=== PATIENT | female | born 1950 | race Caucasian/White ===

== ENCOUNTER 2018-12-05 14:32 | Inpatient (IN) | payer MEDICARE, BC ==
[~2018-12-05] VITALS: Ht 152.4 cm; Wt 88.3 kg
[2018-12-05 15:20] VITALS: BP 132/72
--- NOTE | 2018-12-05 15:20 | NUR ---
Patient arrived. A&O x 4, very pleasant. Put on 2 Li NC, O2 sat at 86 on RA. Asked the 3 gentleman with her to step out while we were going to ehlp her change into a gown and do an assessment. The one that appears to be her son, became very upset, and kept interrupting and asked us to not ever ask him again to step out, because he would not do it. I asked the patient if she was ok with him staying in the room, and she says she is at this time. Patient on telemetry, shows ST at 100-110 at this time. Coccyx not assessed yet, but there appears to be no other skin issues at this time.
[2018-12-05] MEDS ORDERED: SERT100T PO (17:57)
[2018-12-05] MEDS ORDERED: SIMV20TA3 PO (17:57)
[2018-12-05] MEDS ORDERED: METF500T16 PO (18:00)
[2018-12-05] MEDS ORDERED: POTA10TA6 PO (18:00)
[2018-12-05] MEDS ORDERED: ZOLP10TA PO (18:00)
[2018-12-05] MEDS ORDERED: PIOG30TA41 PO (18:00)
[2018-12-05] MEDS ORDERED: LORA-434 PO (18:13)
[2018-12-05] MEDS: IPRATRPIUM/ALBUTEROL 0.5/2.5MG 3 ML NEBU. NEB SCH (18:14)
[2018-12-05 18:23] LABS: BASO % 0 % (0-3); EOS # 0.1 x10^3/uL (0.0-0.7); EOS % 1 % (0-3); HEMOGLOBIN 13.5 g/dL (12.0-15.5); LYMPH # 2.4 x10^3/uL (1.0-4.8); LYMPH % 31 % (24-48); MEAN CORPUSCULAR HEMOGLOBIN 33 pg (25-35); MEAN CORPUSCULAR HGB CONC 35 g/dL (31-37); MEAN CORPUSCULAR VOLUME 96 fL (79-100); MONO # 0.9 x10^3/uL (0.0-1.1); MONO % 12 % (0-9); NEUT # 4.5 x10^3uL (1.8-7.7); NEUT % 57 % (31-73); PLATELET COUNT 139 x10^3/uL (140-400); RED BLOOD COUNT 4.07 x10^6/uL (3.50-5.40); RED CELL DISTRIBUTION WIDTH 13.3 % (11.5-14.5); WHITE BLOOD COUNT 7.9 x10^3/uL (4.0-11.0)
[2018-12-05] MEDS ORDERED: ZOLPIDEM 5 MG TABLET. PO PRN (18:30)
--- NOTE | 2018-12-05 18:32 | HP ---
ADMIT DATE: 12/05/2018 CHIEF COMPLAINT AND HISTORY OF PRESENT ILLNESS: This 68-year-old white female is well known to me from followup in the office. The patient was seen on the day of the patient brought to the office by her brother. The patient had coughing and increasing shortness of breath over the week or 10 days prior to admission. It got to the point where she was unable to walk around the house, to do activities of daily living. She was seen in the office with markedly decreased air movement, bilateral wheezes, hypoxia with O2 sat of 84%, a resting pulse of 118 and was admitted for an exacerbation of COPD with possible pneumonia. PAST MEDICAL HISTORY: Remarkable for COPD, diabetes. She is status post carcinoma of the colon. She has a history of hyperlipidemia, atherosclerotic heart disease with prior OK and stenting. MEDICATIONS: Brought with the patient listed on the computer and have been addressed. ALLERGIES: She has no known drug allergies. SOCIAL HISTORY: She continues to be a smoker, is a nondrinker, does not use drugs, recently , lives at home alone. FAMILY HISTORY: Noncontributory. REVIEW OF SYSTEMS: As mentioned above. PHYSICAL EXAMINATION: GENERAL: She is a well-developed, well-nourished white female who appears ill. VITAL SIGNS: Remarkable for that as mentioned above. She is afebrile in the office. HEAD, EYES, EARS, NOSE, AND THROAT: Unremarkable. NECK: Supple without bruit or thyromegaly. CHEST: Reveals markedly decreased breath sounds bilaterally with some soft wheezing. HEART: Tachycardic, regular without S3, S4, or murmur. ABDOMEN: Soft, nontender, without hepatosplenomegaly or mass. EXTREMITIES: Without cyanosis, clubbing, edema. NEUROLOGIC: She is intact. IMPRESSION: 1. Exacerbation of chronic obstructive pulmonary disease with hypoxia, tachycardia, shortness of breath. 2. Multiple other problems listed above. PLAN: The patient has been admitted. Chest x-ray, Labs will be obtained. She will be started on IV antibiotics, steroids, pulmonary toilet. Pulmonary consultation will be obtained. The patient will be monitored, managed and treated appropriately. MACIEJ SALAZAR MD DR: HUMAIRA/alonzo JOB#: [id number] / [id number]
[2018-12-05 18:39] LABS: ALBUMIN/GLOBULIN RATIO 0.6 (1.0-1.7); CALCIUM 8.9 mg/dL (8.5-10.1); CREATININE 1.1 mg/dL (0.6-1.0); GFR 49.2; POTASSIUM 3.9 mmol/L (3.5-5.1); TOTAL BILIRUBIN 0.5 mg/dL (0.2-1.0); TOTAL PROTEIN 7.9 g/dL (6.4-8.2)
[2018-12-05] MEDS ORDERED: metFORMIN 500 MG TABLET PO ONE (18:45)
[2018-12-05] MEDS: LORazepam 1 MG TABLET PO PRN (18:50)
[2018-12-05] MEDS: IV 1/2 NORMAL SALINE 1,000 ML IV SCH (18:51)
[2018-12-05 19:00] VITALS: BP 144/64
[2018-12-05] MEDS ORDERED: methylPREDNISolone SOD SUCC PF 125 MG/2 ML VIAL. IV ONE (20:00)
[2018-12-05] MEDS: ZOLPIDEM 5 MG TABLET. PO SCH (21:00)
[2018-12-05] MEDS: SIMVASTATIN 20 MG TABLET PO SCH (21:29)
[2018-12-05] MEDS: cefTRIAXone IV Push 1 GM VIAL. IVP SCH (21:29)
[2018-12-05] MEDS ORDERED: INSULIN LISPRO 300 UNITS/3 ML INSULN.PEN. SQ ONE (22:00)
--- NOTE | 2018-12-05 22:28 | RAD ---
Examination: CHEST AP ONLY History: Weak fatigue and short of breath Comparison/Correlation: None Findings: Portable upright frontal view of the chest was obtained. Heart size and pulmonary vasculature are normal. No infiltrate or effusion. No pneumothorax. Bony structures are unremarkable. Impression: No active disease. Electronically signed by: Sal Mejía MD (12/05/2018 10:24 PM) [facility]
[2018-12-05 23:00] VITALS: BP 145/64
[2018-12-05] MEDS: AZITHROMYCIN 500 MG in IV NORMAL SALINE 250ML 250 ML IV SCH (23:01)
[2018-12-06] MEDS ORDERED: LORazepam 1 MG TABLET PO SCH
[2018-12-06 01:04] LABS: BILIRUBIN,URINE NEGATIVE (NEG); CLARITY,URINE CLEAR; COLOR,URINE YELLOW; NITRITE,URINE NEGATIVE (NEG); PROTEIN,URINE NEGATIVE (NEG-TRACE); UROBILINOGEN,URINE 0.2 mg/dL (0.2 mg/dL)
[2018-12-06 01:30] LABS: BACTERIA,URINE FEW /HPF (0-FEW); RBC,URINE 0 /HPF (0-2); SQUAMOUS EPITHELIAL CELL,UR FEW /LPF; WBC,URINE OCC /HPF (0-4)
[2018-12-06 03:00] VITALS: BP 130/54
[2018-12-06] MEDS ORDERED: methylPREDNISolone SOD SUCC PF 40 MG/ML VIAL. IV SCH (06:00)
[2018-12-06] MEDS: IV 1/2 NORMAL SALINE 1,000 ML IV SCH ×2 (06:33→21:20)
[2018-12-06 06:55] VITALS: BP 119/48
[2018-12-06] MEDS: IPRATRPIUM/ALBUTEROL 0.5/2.5MG 3 ML NEBU. NEB SCH ×5 (07:56→23:22)
[2018-12-06] MEDS: POTASSIUM CHLORIDE 10 MEQ TABLET.ER. PO SCH (08:25)
[2018-12-06] MEDS: PIOGLITAZONE 15 MG TABLET. PO SCH (08:25)
[2018-12-06] MEDS: metFORMIN 500 MG TABLET PO SCH ×2 (08:25→17:43)
[2018-12-06] MEDS: SERTRALINE 50 MG TABLET. PO SCH (08:26)
[2018-12-06] MEDS ORDERED: DEXTROSE 50% 25 GM / 50ML DISP.SYRIN. IV PRN (08:30)
[2018-12-06] MEDS: INSULIN LISPRO 300 UNITS/3 ML INSULN.PEN. SQ SCH ×3 (08:38→17:47)
--- NOTE | 2018-12-06 10:07 | PN ---
DATE: 12/06/2018 LOCATION: She is in room 652. SUBJECTIVE: The patient is awake and alert, was able to sleep a little bit better last night and definitely is a little bit less short of breath. OBJECTIVE: VITAL SIGNS: Stable. She is afebrile. GENERAL: She is awake and alert. White count was normal at 7900 on admission and creatinine was 1.1. Sugars have been elevated since admission due to steroid use and sliding scale insulin was ordered this morning. Chest x-ray showed no acute disease. CHEST: Today reveals more wheezing, but it is because she is moving more air than she was in the office. HEART: Tachycardia is better with her heart rate down around 100 at this point, but regular. ABDOMEN: Benign. EXTREMITIES: Without cyanosis, clubbing or edema. IMPRESSION: 1. Exacerbation of chronic obstructive pulmonary disease with hypoxia, tachycardia and acute respiratory failure. 2. Diabetes with elevated sugars due to steroids. PLAN: We will continue present care. Awaiting pulmonary thoughts on consultation. We will cover elevated sugars with sliding scale insulin. MACIEJ SALAZAR MD DR: HUMAIRA/alonzo JOB#: [id number] / [id number]
[2018-12-06 10:31] VITALS: BP 145/70
[2018-12-06] MEDS: LORazepam 1 MG TABLET PO PRN ×2 (12:47→19:35)
--- NOTE | 2018-12-06 14:11 | CONS ---
DATE OF CONSULTATION: ATTENDING PHYSICIAN: Dr. Arizmendi. REASON FOR CONSULTATION: Dyspnea, hypoxia. HISTORY OF PRESENT ILLNESS: The patient is a 68-year-old who has been a smoker for 45 years and still smokes cigarettes. She was brought into the hospital after she has been increasingly short of breath. The patient states that she has been coughing for last 4-5 days and is productive of brown sputum. She has been wheezing as well. She was noted to have a saturation of 84% in the office with Dr. Arizmendi and resting tachycardia. As a result, she was hospitalized. She denies any headaches. No blurring of vision. No nausea, vomiting, no diarrhea, no dysuria, no focal weakness. No skin rash. I have reviewed the patient's chest x-ray, and it does not show any acute infiltrates. PAST MEDICAL HISTORY: Significant for COPD with ongoing tobaccoism, unknown FEV1, history of hyperlipidemia, atherosclerotic heart disease with prior CT and stenting. MEDICATIONS: All reviewed as listed in the MRAD.. PAST SURGICAL HISTORY: No recent surgeries. ALLERGIES: None. SOCIAL HISTORY: Continues to smoke, has been drinking for last 40 years. She is , lives at home alone. FAMILY HISTORY: Noncontributory to lungs. REVIEW OF SYSTEMS: Twelve-point system obtained. Pertinent positives discussed in my history of present illness, otherwise noncontributory. All systems that were negative were reviewed as well. OBJECTIVE: VITAL SIGNS: Stable. Pulse ox 93% on 3 liters. NECK: Supple. LUNGS: With bilateral expiratory wheezes and some rhonchi. CARDIOVASCULAR: Regular rate and rhythm. ABDOMEN: Soft, obese. EXTREMITIES: With no pitting edema. LABORATORY DATA: Reviewed. White cell count 7.9, hemoglobin 13.5, platelets are 139. BUN and creatinine 15 and 1.1. IMPRESSION: 1. Dyspnea with acute hypoxic respiratory failure secondary to acute exacerbation of chronic obstructive pulmonary disease and acute bronchitis. 2. Cough with brown sputum production related to acute bronchitis. She has been expectorating brown sputum, but at times has difficulty in getting phlegm out. She may benefit from Mucinex as well. 3. Underlying chronic obstructive pulmonary disease, unknown FEV1. The patient has been smoking for 45 years. 4. No definite pneumonia seen on the chest x-ray. RECOMMENDATIONS: 1. I had an extensive discussion with the patient regarding tobacco use. She would consider cold turkey. 2. In the meantime, I would increase nebulizer treatments to every 4 hours till wheezing is resolved. She will need home nebulizer at discharge. 3. Add Pulmicort. 4. Increase Solu-Medrol. 5. Continue empiric antibiotics. 6. PFTs as an outpatient. 7. We will follow along with you. TONE PHIPPS MD DR: NITZA/alonzo JOB#: [id number] / [id number]
[2018-12-06] MEDS: methylPREDNISolone SOD SUCC PF 125 MG/2 ML VIAL. IV SCH ×2 (14:53→21:18)
[2018-12-06 15:02] VITALS: BP 138/68
[2018-12-06] MEDS ORDERED: INSULIN LISPRO 300 UNITS/3 ML INSULN.PEN. SQ ONE ×2 (17:45→23:30)
[2018-12-06] MEDS: cefTRIAXone IV Push 1 GM VIAL. IVP SCH (19:35)
[2018-12-06 19:40] VITALS: BP 136/54
[2018-12-06] MEDS: BUDESONIDE 0.5 MG/2 ML NEBU. NEB SCH (20:23)
[2018-12-06] MEDS: SIMVASTATIN 20 MG TABLET PO SCH (21:17)
[2018-12-06] MEDS: LACTOBACILLUS RHAMNOSUS GG 1 CAPSULE. PO SCH (21:17)
[2018-12-06] MEDS: ZOLPIDEM 5 MG TABLET. PO SCH (21:17)
[2018-12-06] MEDS: AZITHROMYCIN 500 MG in IV NORMAL SALINE 250ML 250 ML IV SCH (21:19)
[2018-12-06 23:10] VITALS: BP 153/64
--- NOTE | 2018-12-06 23:16 | NUR ---
HS glucose at 398, MD notified, gave an order for to give 4units of Insulin
[2018-12-07 03:32] VITALS: BP 136/60
[2018-12-07] MEDS: IPRATRPIUM/ALBUTEROL 0.5/2.5MG 3 ML NEBU. NEB SCH ×6 (04:03→23:36)
[2018-12-07] MEDS: methylPREDNISolone SOD SUCC PF 125 MG/2 ML VIAL. IV SCH ×3 (05:56→20:55)
[2018-12-07 07:00] VITALS: BP 115/57
--- NOTE | 2018-12-07 07:48 | PN ---
DATE: 12/07/2018 LOCATION: She is in room 652. SUBJECTIVE: The patient is easily awakened, feels like she got stretches of 2-3 hours of sleeping without shortness of breath last night and is very happy about that. Still has marked shortness of breath with any exertion within the room. OBJECTIVE: VITAL SIGNS: Stable. She remains somewhat tachycardic in the 110 range. She is afebrile. O2 is present at 3 liters per nasal cannula. LUNGS: Reveals louder wheezing this morning consistent with better air movement as she is beginning to open up. HEART: Tachycardic, regular. ABDOMEN: Benign. EXTREMITIES: Without cyanosis, clubbing or edema. LABORATORY DATA: Sugars have been in the 300s with steroids. I have asked nursing to increase her sliding scale by 5 units per range here today, but know that once the steroids are able to be weaned, her sugars are normally very good. Pulmonary help is appreciated. IMPRESSION: 1. Exacerbation of chronic obstructive pulmonary disease with hypoxia, tachycardia, acute respiratory failure with slow improvement. 2. Diabetes with elevated sugars due to steroids. 3. Coronary artery disease. PLAN: Continue present care. Trace the sugars around the sliding scale insulin, otherwise, same and allow the patient's treatment hopefully to open her up to where we can consider discharge. MACIEJ SALAZAR MD DR: HUMAIRA/alonzo JOB#: [id number] / [id number]
[2018-12-07] MEDS: BUDESONIDE 0.5 MG/2 ML NEBU. NEB SCH ×2 (07:56→20:10)
--- NOTE | 2018-12-07 08:30 | NUR ---
SW following pt for anticipated dc needs. Chart reviewed and DW RN. Pt lives at home alone and is currently 3L 02. SW requested RN to order PT/OT evaluation to assesses skilled needs. SW will also continue to evaluate home 02 needs.
[2018-12-07] MEDS: LACTOBACILLUS RHAMNOSUS GG 1 CAPSULE. PO SCH ×2 (09:25→20:55)
[2018-12-07] MEDS: metFORMIN 500 MG TABLET PO SCH ×2 (09:26→18:15)
[2018-12-07] MEDS: POTASSIUM CHLORIDE 10 MEQ TABLET.ER. PO SCH (09:26)
[2018-12-07] MEDS: PIOGLITAZONE 15 MG TABLET. PO SCH (09:27)
[2018-12-07] MEDS: SERTRALINE 50 MG TABLET. PO SCH (09:27)
[2018-12-07] MEDS: INSULIN LISPRO 300 UNITS/3 ML INSULN.PEN. SQ SCH ×6 (09:32→18:19)
[2018-12-07 11:00] VITALS: BP 121/53
[2018-12-07] MEDS: IV 1/2 NORMAL SALINE 1,000 ML IV SCH ×2 (11:04→22:50)
--- NOTE | 2018-12-07 12:04 | PDOC ---
PULMONARY PROGRESS NOTES Subjective did not sleep well last night still wheezing Vitals Vital Signs Date Time Temp Pulse Resp B/P (MAP) Pulse Ox O2 Delivery O2 Flow Rate FiO2 12/07/18 11:00 98.3 110 18 121/53 (75) 92 Nasal Cannula 3.0 98.3 General: Alert, No acute distress Lungs: Wheezing (bilateral) Cardiovascular: S1 Abdomen: Soft Neuro Exam: Alert Extremities: No Edema Skin: Warm Labs Laboratory Tests Test 12/05/18 17:16 12/05/18 18:10 12/05/18 21:11 12/06/18 00:56 Glucose (Fingerstick) 272 mg/dL (70-99) 349 mg/dL (70-99) White Blood Count 7.9 x10^3/uL (4.0-11.0) Red Blood Count 4.07 x10^6/uL (3.50-5.40) Hemoglobin 13.5 g/dL (12.0-15.5) Hematocrit 39.0 % (36.0-47.0) Mean Corpuscular Volume 96 fL (79-100) Mean Corpuscular Hemoglobin 33 pg (25-35) Mean Corpuscular Hemoglobin Concent 35 g/dL (31-37) Red Cell Distribution Width 13.3 % (11.5-14.5) Platelet Count 139 x10^3/uL (140-400) Neutrophils (%) (Auto) 57 % (31-73) Lymphocytes (%) (Auto) 31 % (24-48) Monocytes (%) (Auto) 12 % (0-9) Eosinophils (%) (Auto) 1 % (0-3) Basophils (%) (Auto) 0 % (0-3) Neutrophils # (Auto) 4.5 x10^3uL (1.8-7.7) Lymphocytes # (Auto) 2.4 x10^3/uL (1.0-4.8) Monocytes # (Auto) 0.9 x10^3/uL (0.0-1.1) Eosinophils # (Auto) 0.1 x10^3/uL (0.0-0.7) Basophils # (Auto) 0.0 x10^3/uL (0.0-0.2) Sodium Level 134 mmol/L (136-145) Potassium Level 3.9 mmol/L (3.5-5.1) Chloride Level 97 mmol/L (98-107) Carbon Dioxide Level 29 mmol/L (21-32) Anion Gap 8 (6-14) Blood Urea Nitrogen 15 mg/dL (7-20) Creatinine 1.1 mg/dL (0.6-1.0) Estimated GFR (Cockcroft-Gault) 49.2 BUN/Creatinine Ratio 14 (6-20) Glucose Level 277 mg/dL (70-99) Calcium Level 8.9 mg/dL (8.5-10.1) Total Bilirubin 0.5 mg/dL (0.2-1.0) Aspartate Amino Transf (AST/SGOT) 14 U/L (15-37) Alanine Aminotransferase (ALT/SGPT) 19 U/L (14-59) Alkaline Phosphatase 97 U/L (46-116) Total Protein 7.9 g/dL (6.4-8.2) Albumin 3.0 g/dL (3.4-5.0) Albumin/Globulin Ratio 0.6 (1.0-1.7) Urine Collection Type Unknown Urine Color Yellow Urine Clarity Clear Urine pH 5.0 Urine Specific [place] 1.020 Urine Protein Negative mg/dL (NEG-TRACE) Urine Glucose (UA) >=1000 mg/dL (NEG) Urine Ketones (Stick) Negative mg/dL (NEG) Urine Blood Negative (NEG) Urine Nitrite Negative (NEG) Urine Bilirubin Negative (NEG) Urine Urobilinogen Dipstick 0.2 mg/dL (0.2 mg/dL) Urine Leukocyte Esterase Negative (NEG) Urine RBC 0 /HPF (0-2) Urine WBC Occ /HPF (0-4) Urine Squamous Epithelial Cells Few /LPF Urine Bacteria Few /HPF (0-FEW) Test 12/06/18 06:55 12/06/18 11:46 12/06/18 16:58 12/06/18 20:55 Glucose (Fingerstick) 319 mg/dL (70-99) 344 mg/dL (70-99) 361 mg/dL (70-99) 398 mg/dL (70-99) Test 12/07/18 07:46 Glucose (Fingerstick) 398 mg/dL (70-99) Laboratory Tests Test 12/06/18 16:58 12/06/18 20:55 12/07/18 07:46 Glucose (Fingerstick) 361 mg/dL (70-99) 398 mg/dL (70-99) 398 mg/dL (70-99) Medications Active Scripts Medications Dose Route/Sig Max Daily Dose Days Date Category Ativan (Lorazepam) 1 Mg Tablet 1 Mg PO Q6HRS 12/05/18 Reported Ambien (Zolpidem Tartrate) 10 Mg Tablet 10 Mg PO PRN QHS 12/05/18 Reported Metformin Hcl 500 Mg Tablet 500 Mg PO BIDWMEALS 12/05/18 Reported Klor-Con 10 (Potassium Chloride) 10 Meq Tablet.er 20 Meq PO DAILY08 12/05/18 Reported Actos (Pioglitazone Hcl) 30 Mg Tablet 1 Tab PO DAILY 12/05/18 Reported Simvastatin 20 Mg Tablet 20 Mg PO DAILY 12/05/18 Reported Zoloft (Sertraline Hcl) 100 Mg Tablet 1.5 Tab PO DAILY 12/05/18 Reported Impression . 1. Dyspnea with acute hypoxic respiratory failure secondary to acute exacerbation of chronic obstructive pulmonary disease and acute bronchitis. 2. Cough with brown sputum production related to acute bronchitis. She has been expectorating brown sputum, but at times has difficulty in getting phlegm out. 3. Underlying chronic obstructive pulmonary disease, unknown FEV1. The patient has been smoking for 45 years. 4. No definite pneumonia seen on the chest x-ray. Plan . 1. I had an extensive discussion with the patient regarding tobacco use. She would consider cold turkey. 2. nebulizer treatments every 4 hours till wheezing is resolved. She will need home nebulizer at discharge. 3. Pulmicort. 4. Solu-Medrol. 5. Continue empiric antibiotics. 6. PFTs as an outpatient. 7. May not be ready for home in am TONE PHIPPS MD Dec 07, 2018 12:04
[2018-12-07] MEDS ORDERED: INSULIN LISPRO 300 UNITS/3 ML INSULN.PEN. SQ ONE (14:15)
[2018-12-07 15:00] VITALS: BP 117/54
[2018-12-07 19:00] VITALS: BP 116/45
[2018-12-07] MEDS: SIMVASTATIN 20 MG TABLET PO SCH (20:55)
[2018-12-07] MEDS: cefTRIAXone IV Push 1 GM VIAL. IVP SCH (20:55)
[2018-12-07] MEDS: ZOLPIDEM 5 MG TABLET. PO SCH (20:55)
[2018-12-07] MEDS: AZITHROMYCIN 500 MG in IV NORMAL SALINE 250ML 250 ML IV SCH (20:56)
[2018-12-07] MEDS ORDERED: INSULIN GLARGINE 300 UNITS/3 ML INSULN.PEN. SQ SCH (21:00)
[2018-12-07] MEDS: LORazepam 1 MG TABLET PO PRN (22:43)
[2018-12-07 23:05] VITALS: BP 110/44
--- NOTE | 2018-12-08 01:00 | NUR ---
BELLMAKER noticed a medicine bottle and heard rattling in patients sock when going to bathroom. This RN asked patient about the bottle. She had moved it and placed it inside of her cough drop package. When asked about it, she pulled out an empty of Valium 10mg from her cough drop bag. She said she had cough drops in the pill bottle.
[2018-12-08 03:14] VITALS: BP 135/59
[2018-12-08] MEDS: IPRATRPIUM/ALBUTEROL 0.5/2.5MG 3 ML NEBU. NEB SCH ×6 (04:02→23:43)
[2018-12-08] MEDS: methylPREDNISolone SOD SUCC PF 125 MG/2 ML VIAL. IV SCH ×3 (05:40→21:58)
[2018-12-08 07:15] VITALS: BP 159/60
--- NOTE | 2018-12-08 07:30 | NUR ---
At approximately 0720 patient called on the call light and said she was needing help stating she was on the floor. This RN observed the patient sitting upright on the floor next to her bed. patient did not complain of any pain and vital signs were normal.
[2018-12-08] MEDS: BUDESONIDE 0.5 MG/2 ML NEBU. NEB SCH ×2 (07:37→19:42)
[2018-12-08] MEDS: PIOGLITAZONE 15 MG TABLET. PO SCH (08:33)
[2018-12-08] MEDS: metFORMIN 500 MG TABLET PO SCH ×2 (08:33→17:47)
[2018-12-08] MEDS: LACTOBACILLUS RHAMNOSUS GG 1 CAPSULE. PO SCH ×2 (08:33→21:58)
[2018-12-08] MEDS: SERTRALINE 50 MG TABLET. PO SCH (08:33)
[2018-12-08] MEDS: POTASSIUM CHLORIDE 10 MEQ TABLET.ER. PO SCH (08:34)
[2018-12-08] MEDS: INSULIN LISPRO 300 UNITS/3 ML INSULN.PEN. SQ SCH ×6 (08:42→17:51)
[2018-12-08] MEDS: LORazepam 1 MG TABLET PO PRN (08:47)
--- NOTE | 2018-12-08 09:57 | NUR ---
SW following pt. PT/OT recommends SNU. Spoke with pt at bedside extensively about options and insurance coverage. Pt wants to discuss options with family and needs time to think over it. SW provided pt with a phone number to call once she reaches a decision. SW has discussed pt will need to notify SW with a decision today so SW can start evaluation process. SW will continue to follow.
[2018-12-08 10:57] VITALS: BP 131/56
[2018-12-08] MEDS: NICOTINE 21MG PATCH. TD SCH (11:28)
--- NOTE | 2018-12-08 11:33 | PN ---
DATE: 12/08/2018 LOCATION: She is in room 652. SUBJECTIVE: The patient is awake, alert, feels like she is gradually improving on a breathing basis, still was profoundly weak and feels like she even needs to have help still getting out of the bed, did walk in the [place] with therapy yesterday; however, and felt like she did okay with that with a walker. Therapy's recommendations were that of half-way at the time of discharge. OBJECTIVE: VITAL SIGNS: Stable. She is afebrile. She remains on 3 liters per nasal cannula O2. CHEST: Reveals better air movement daily with still diffuse expiratory wheezes. HEART: Remained slightly tachycardic. ABDOMEN: Benign. EXTREMITIES: Without cyanosis, clubbing, edema. NEUROLOGIC: She is intact. Sugars have remained elevated, although not quite as much this morning as I started her on some long-acting insulin as well, and we will continue this until the steroids are able to be dismissed. IMPRESSION: 1. Exacerbation of chronic obstructive pulmonary disease with slow improvement. 2. Hyperglycemia due to diabetes, on steroids. 3. Coronary artery disease. PLAN: Continue present care. We will increase the dose of sliding scale insulin this evening if steroids were continued. Continue to follow pulmonary's lead and will put in evaluation for half-way. MACIEJ SALAZAR MD DR: HUMAIRA/alonzo JOB#: [id number] / [id number]
--- NOTE | 2018-12-08 12:38 | PDOC ---
PULMONARY PROGRESS NOTES Subjective less wheezing/ no soa Vitals Vital Signs Date Time Temp Pulse Resp B/P (MAP) Pulse Ox O2 Delivery O2 Flow Rate FiO2 12/08/18 12:08 Nasal Cannula 3.0 12/08/18 10:57 98.0 86 20 131/56 (81) 94 98.0 General: Alert, No acute distress Lungs: Wheezing (bilateral) Cardiovascular: S1 Abdomen: Soft Neuro Exam: Alert Extremities: No Edema Skin: Warm Labs Laboratory Tests Test 12/06/18 16:58 12/06/18 20:55 12/07/18 07:46 12/07/18 12:05 Glucose (Fingerstick) 361 mg/dL (70-99) 398 mg/dL (70-99) 398 mg/dL (70-99) 425 mg/dL (70-99) Test 12/07/18 17:13 12/07/18 20:30 12/08/18 07:03 12/08/18 11:32 Glucose (Fingerstick) 217 mg/dL (70-99) 265 mg/dL (70-99) 308 mg/dL (70-99) 336 mg/dL (70-99) Laboratory Tests Test 12/07/18 17:13 12/07/18 20:30 12/08/18 07:03 12/08/18 11:32 Glucose (Fingerstick) 217 mg/dL (70-99) 265 mg/dL (70-99) 308 mg/dL (70-99) 336 mg/dL (70-99) Medications Active Scripts Medications Dose Route/Sig Max Daily Dose Days Date Category Ativan (Lorazepam) 1 Mg Tablet 1 Mg PO Q6HRS 12/05/18 Reported Ambien (Zolpidem Tartrate) 10 Mg Tablet 10 Mg PO PRN QHS 12/05/18 Reported Metformin Hcl 500 Mg Tablet 500 Mg PO BIDWMEALS 12/05/18 Reported Klor-Con 10 (Potassium Chloride) 10 Meq Tablet.er 20 Meq PO DAILY08 12/05/18 Reported Actos (Pioglitazone Hcl) 30 Mg Tablet 1 Tab PO DAILY 12/05/18 Reported Simvastatin 20 Mg Tablet 20 Mg PO DAILY 12/05/18 Reported Zoloft (Sertraline Hcl) 100 Mg Tablet 1.5 Tab PO DAILY 12/05/18 Reported Impression . 1. Dyspnea with acute hypoxic respiratory failure secondary to acute exacerbation of chronic obstructive pulmonary disease and acute bronchitis. 2. Cough with brown sputum production related to acute bronchitis. She has been expectorating brown sputum, but at times has difficulty in getting phlegm out. 3. Underlying chronic obstructive pulmonary disease, unknown FEV1. The patient has been smoking for 45 years. 4. No definite pneumonia seen on the chest x-ray. Plan . 1. I had an extensive discussion with the patient regarding tobacco use. She would consider cold turkey. 2. nebulizer treatments every 4 hours till wheezing is resolved. She will need home nebulizer at discharge. 3. Pulmicort. 4. Solu-Medrol. 5. Continue empiric antibiotics. 6. PFTs as an outpatient. 7. May ready for home Tuesday TONE PHIPPS MD Dec 08, 2018 12:38
[2018-12-08] MEDS: IV 1/2 NORMAL SALINE 1,000 ML IV SCH (14:01)
[2018-12-08 15:13] VITALS: BP 145/72
--- NOTE | 2018-12-08 15:34 | NUR ---
SW following pt. Spoke with pt at bedside and pt requested SW to call son, Jean. SW spoke with Jean via speaker phone in pt's room. Pt's son agreeable with [facility] as it is closer to their home. SW phoned and faxed referral to [facility], phone: , fax: [phone]. Pt admission and acceptance pending. SW will continue to follow.
--- NOTE | 2018-12-08 18:45 | NUR ---
This morning while patient was up in the chair this nurse was straightening the sheets in the bed and found a pill. Upon inspection of the pill it was determined to be a Valium. This RN did not give the patient this pill nor is it on her eMAR.
[2018-12-08 19:05] VITALS: BP 133/60
[2018-12-08] MEDS: cefTRIAXone IV Push 1 GM VIAL. IVP SCH (20:42)
[2018-12-08] MEDS: ZOLPIDEM 5 MG TABLET. PO SCH (21:00)
[2018-12-08] MEDS: SIMVASTATIN 20 MG TABLET PO SCH (21:59)
[2018-12-08] MEDS: AZITHROMYCIN 500 MG in IV NORMAL SALINE 250ML 250 ML IV SCH (22:00)
[2018-12-08] MEDS: INSULIN GLARGINE 300 UNITS/3 ML INSULN.PEN. SQ SCH (22:01)
[2018-12-08 23:58] VITALS: BP 132/57
[2018-12-09] MEDS: IV 1/2 NORMAL SALINE 1,000 ML IV SCH ×2 (02:45→16:05)
[2018-12-09 03:45] VITALS: BP 133/64
[2018-12-09] MEDS: methylPREDNISolone SOD SUCC PF 125 MG/2 ML VIAL. IV SCH ×3 (05:54→20:26)
[2018-12-09 07:10] VITALS: BP 114/49
--- NOTE | 2018-12-09 09:18 | PDOC ---
PULMONARY PROGRESS NOTES Subjective sob slightly better, has cough, no pain Vitals Vital Signs Date Time Temp Pulse Resp B/P (MAP) Pulse Ox O2 Delivery O2 Flow Rate FiO2 12/09/18 07:10 98.1 70 18 114/49 (70) 94 Nasal Cannula 3.0 98.1 ROS: No Nausea General: Alert, No acute distress HEENT: Other (nc at perr) Lungs: Wheezing (bilateral) Cardiovascular: S1, S2 Abdomen: Soft, Non-tender Neuro Exam: Alert Extremities: No Edema Skin: Warm Labs Laboratory Tests Test 12/07/18 12:05 12/07/18 17:13 12/07/18 20:30 12/08/18 07:03 Glucose (Fingerstick) 425 mg/dL (70-99) 217 mg/dL (70-99) 265 mg/dL (70-99) 308 mg/dL (70-99) Test 12/08/18 11:32 12/08/18 16:52 12/08/18 20:59 12/09/18 07:09 Glucose (Fingerstick) 336 mg/dL (70-99) 325 mg/dL (70-99) 225 mg/dL (70-99) 252 mg/dL (70-99) Laboratory Tests Test 12/08/18 11:32 12/08/18 16:52 12/08/18 20:59 12/09/18 07:09 Glucose (Fingerstick) 336 mg/dL (70-99) 325 mg/dL (70-99) 225 mg/dL (70-99) 252 mg/dL (70-99) Medications Active Scripts Medications Dose Route/Sig Max Daily Dose Days Date Category Ativan (Lorazepam) 1 Mg Tablet 1 Mg PO Q6HRS 12/05/18 Reported Ambien (Zolpidem Tartrate) 10 Mg Tablet 10 Mg PO PRN QHS 12/05/18 Reported Metformin Hcl 500 Mg Tablet 500 Mg PO BIDWMEALS 12/05/18 Reported Klor-Con 10 (Potassium Chloride) 10 Meq Tablet.er 20 Meq PO DAILY08 12/05/18 Reported Actos (Pioglitazone Hcl) 30 Mg Tablet 1 Tab PO DAILY 12/05/18 Reported Simvastatin 20 Mg Tablet 20 Mg PO DAILY 12/05/18 Reported Zoloft (Sertraline Hcl) 100 Mg Tablet 1.5 Tab PO DAILY 12/05/18 Reported Impression . 1. Dyspnea with acute hypoxic respiratory failure secondary to acute exacerbation of chronic obstructive pulmonary disease and acute bronchitis. 2. Cough with brown sputum production related to acute bronchitis. She has been expectorating brown sputum, but at times has difficulty in getting phlegm out. 3. Underlying chronic obstructive pulmonary disease, unknown FEV1. The patient has been smoking for 45 years. 4. No definite pneumonia seen on the chest x-ray. Plan . 1. had a long discussion with the patient regarding smoking cessation. She would consider cold turkey. 2. nebulizer treatments every 4 hours till wheezing is resolved. She will need home nebulizer at discharge. 3. Pulmicort. 4. Solu-Medrol, no dose change, still wheezing. 5. Continue empiric antibiotics. 6. PFTs as an outpatient. 7. PT OT discussed w DASH Guerrero MD Dec 09, 2018 09:18
[2018-12-09] MEDS: IPRATRPIUM/ALBUTEROL 0.5/2.5MG 3 ML NEBU. NEB SCH ×5 (09:22→19:34)
[2018-12-09] MEDS: BUDESONIDE 0.5 MG/2 ML NEBU. NEB SCH ×2 (09:22→19:34)
[2018-12-09] MEDS: LACTOBACILLUS RHAMNOSUS GG 1 CAPSULE. PO SCH ×2 (09:29→20:25)
[2018-12-09] MEDS: SERTRALINE 50 MG TABLET. PO SCH (09:29)
[2018-12-09] MEDS: NICOTINE 21MG PATCH. TD SCH (09:29)
[2018-12-09] MEDS: metFORMIN 500 MG TABLET PO SCH ×2 (09:29→17:30)
[2018-12-09] MEDS: PIOGLITAZONE 15 MG TABLET. PO SCH (09:30)
[2018-12-09] MEDS: POTASSIUM CHLORIDE 10 MEQ TABLET.ER. PO SCH (09:30)
[2018-12-09] MEDS: INSULIN LISPRO 300 UNITS/3 ML INSULN.PEN. SQ SCH ×6 (09:53→17:37)
[2018-12-09 11:03] VITALS: BP 122/59
[2018-12-09] MEDS: LORazepam 1 MG TABLET PO PRN (12:49)
[2018-12-09 15:38] VITALS: BP 126/60
[2018-12-09 19:05] VITALS: BP 123/58
[2018-12-09] MEDS: ZOLPIDEM 5 MG TABLET. PO SCH (20:25)
[2018-12-09] MEDS: SIMVASTATIN 20 MG TABLET PO SCH (20:25)
[2018-12-09] MEDS: cefTRIAXone IV Push 1 GM VIAL. IVP SCH (20:26)
[2018-12-09] MEDS: AZITHROMYCIN 500 MG in IV NORMAL SALINE 250ML 250 ML IV SCH (20:27)
[2018-12-09] MEDS: INSULIN GLARGINE 300 UNITS/3 ML INSULN.PEN. SQ SCH (20:33)
[2018-12-09 23:10] VITALS: BP 133/58
[2018-12-10] MEDS: IPRATRPIUM/ALBUTEROL 0.5/2.5MG 3 ML NEBU. NEB SCH ×6 (00:07→20:18)
[2018-12-10 03:10] VITALS: BP 133/56
--- NOTE | 2018-12-10 05:09 | PN ---
DATE: 12/09/2018 LOCATION: She is in room 652. SUBJECTIVE: The patient is awake, alert, still having marked difficulty getting out of bed due to weakness and shortness of breath, feels overall like there is slight improvement. OBJECTIVE: VITAL SIGNS: Stable. She is afebrile. GENERAL: She is awake and alert. O2 remains at 3 liters per nasal cannula. CHEST: Reveals diffuse wheezing with again daily better air exchange overall. HEART: Regular rate and rhythm. ABDOMEN: Benign. EXTREMITIES: Without cyanosis, clubbing or edema. IMPRESSION: 1. Exacerbation of chronic obstructive pulmonary disease with slow improvement. 2. Shortness of breath with acute hypoxic respiratory failure. 3. Productive cough. 4. Coronary artery disease. PLAN: Continue present therapy. Sugars remained somewhat elevated due to steroids, but are tolerable at this point in time and expect improvement once we were able to taper and get rid of the same. Pulmonary help is appreciated. Continue treatment. Increase activities as tolerated. MACIEJ SALAZAR MD DR: HUMAIRA/alonzo JOB#: [id number] / [id number]
[2018-12-10] MEDS: methylPREDNISolone SOD SUCC PF 125 MG/2 ML VIAL. IV SCH ×2 (06:13→20:36)
[2018-12-10] MEDS: IV 1/2 NORMAL SALINE 1,000 ML IV SCH ×2 (06:13→17:43)
[2018-12-10 07:00] VITALS: BP 128/50
[2018-12-10] MEDS: BUDESONIDE 0.5 MG/2 ML NEBU. NEB SCH ×2 (07:31→20:18)
--- NOTE | 2018-12-10 10:01 | PDOC ---
PULMONARY PROGRESS NOTES Subjective sob slightly better, has cough, no pain Vitals Vital Signs Date Time Temp Pulse Resp B/P (MAP) Pulse Ox O2 Delivery O2 Flow Rate FiO2 12/10/18 07:31 94 Nasal Cannula 3.0 12/10/18 07:00 97.9 85 16 128/50 (76) 97.9 ROS: No Nausea General: Alert, No acute distress HEENT: Other (nc at perrl) Lungs: Other (a few end exp wheezing better air movement) Cardiovascular: S1, S2 Abdomen: Soft, Non-tender Neuro Exam: Alert Extremities: No Edema Skin: Warm Labs Laboratory Tests Test 12/08/18 11:32 12/08/18 16:52 12/08/18 20:59 12/09/18 07:09 Glucose (Fingerstick) 336 mg/dL (70-99) 325 mg/dL (70-99) 225 mg/dL (70-99) 252 mg/dL (70-99) Test 12/09/18 11:39 12/09/18 16:39 12/09/18 20:49 12/10/18 07:10 Glucose (Fingerstick) 396 mg/dL (70-99) 306 mg/dL (70-99) 144 mg/dL (70-99) 169 mg/dL (70-99) Laboratory Tests Test 12/09/18 11:39 12/09/18 16:39 12/09/18 20:49 12/10/18 07:10 Glucose (Fingerstick) 396 mg/dL (70-99) 306 mg/dL (70-99) 144 mg/dL (70-99) 169 mg/dL (70-99) Medications Active Scripts Medications Dose Route/Sig Max Daily Dose Days Date Category Ativan (Lorazepam) 1 Mg Tablet 1 Mg PO Q6HRS 12/05/18 Reported Ambien (Zolpidem Tartrate) 10 Mg Tablet 10 Mg PO PRN QHS 12/05/18 Reported Metformin Hcl 500 Mg Tablet 500 Mg PO BIDWMEALS 12/05/18 Reported Klor-Con 10 (Potassium Chloride) 10 Meq Tablet.er 20 Meq PO DAILY08 12/05/18 Reported Actos (Pioglitazone Hcl) 30 Mg Tablet 1 Tab PO DAILY 12/05/18 Reported Simvastatin 20 Mg Tablet 20 Mg PO DAILY 12/05/18 Reported Zoloft (Sertraline Hcl) 100 Mg Tablet 1.5 Tab PO DAILY 12/05/18 Reported Impression . 1. Dyspnea with acute hypoxic respiratory failure secondary to acute exacerbation of chronic obstructive pulmonary disease and acute bronchitis. 2. Cough with brown sputum production related to acute bronchitis. 3. Underlying chronic obstructive pulmonary disease, unknown FEV1. The patient has been smoking for 45 years. 4. No definite pneumonia seen on the chest x-ray. Plan . 1. had a long discussion with the patient regarding smoking cessation. She would consider cold turkey. 2. nebulizer treatments every 4 hours till wheezing is resolved. She will need home nebulizer at discharge. 3. Pulmicort. 4. change Solu-Medrol to bid, 5. Continue empiric antibiotics. 6. PFTs as an outpatient. 7. PT OT discussed w DASH Guerrero MD Dec 10, 2018 10:01
[2018-12-10] MEDS: NICOTINE 21MG PATCH. TD SCH (10:05)
[2018-12-10] MEDS: SERTRALINE 50 MG TABLET. PO SCH (10:05)
[2018-12-10] MEDS: LACTOBACILLUS RHAMNOSUS GG 1 CAPSULE. PO SCH ×2 (10:05→20:35)
[2018-12-10] MEDS: PIOGLITAZONE 15 MG TABLET. PO SCH (10:05)
[2018-12-10] MEDS: POTASSIUM CHLORIDE 10 MEQ TABLET.ER. PO SCH (10:06)
[2018-12-10] MEDS: metFORMIN 500 MG TABLET PO SCH ×2 (10:06→17:35)
[2018-12-10] MEDS: INSULIN LISPRO 300 UNITS/3 ML INSULN.PEN. SQ SCH ×6 (10:19→17:42)
[2018-12-10] MEDS: LORazepam 1 MG TABLET PO PRN (10:20)
[2018-12-10 11:00] VITALS: BP_SYST 142; BP_SYST 146; BP_DIAS 67; BP_DIAS 79
[2018-12-10 15:00] VITALS: BP 132/47
[2018-12-10 19:10] VITALS: BP 126/56
[2018-12-10] MEDS: SIMVASTATIN 20 MG TABLET PO SCH (20:35)
[2018-12-10] MEDS: cefTRIAXone IV Push 1 GM VIAL. IVP SCH (20:35)
[2018-12-10] MEDS: AZITHROMYCIN 500 MG in IV NORMAL SALINE 250ML 250 ML IV SCH (20:36)
[2018-12-10] MEDS: ZOLPIDEM 5 MG TABLET. PO SCH (20:48)
[2018-12-10] MEDS: INSULIN GLARGINE 300 UNITS/3 ML INSULN.PEN. SQ SCH (20:48)
--- NOTE | 2018-12-10 21:36 | PN ---
DATE: 12/10/2018 LOCATION: She is in room 652. SUBJECTIVE: The patient is awake, alert. Admits to feeling and breathing somewhat better. Son is in attendance. OBJECTIVE: VITAL SIGNS: Stable. She is afebrile. She remains on oxygen at 3 liters per nasal cannula. CHEST: Reveals much less wheezing today and better air exchange. HEART: Regular. ABDOMEN: Benign. Sugars overall have improved somewhat in the last 12 hours. Pulmonary help is appreciated. She still admits to being too weak to get out of bed by herself and will need nursing home on discharge and is considering a [facility] resort out [facility] [place] as this is close to her son and close to home. Acceptance there is pending. IMPRESSION: 1. Exacerbation of chronic obstructive pulmonary disease with slow improvement. 2. Shortness of breath with acute hypoxic respiratory failure. 3. Productive cough. 4. Coronary artery disease. PLAN: Continue present therapy. Again, sugars have improved with the addition of insulin and we will expect further improvement once steroids are able to be discontinued, they have been cut back down at this point to every 12 hours and we will see what we do in the next 24 hours as insulin may need to go. I would anticipate nursing home discharge tomorrow if things have been arranged by forensic social worker. MACIEJ SALAZAR MD DR: HUMAIRA/alonzo JOB#: [id number] / [id number]
[2018-12-10 23:09] VITALS: BP 121/46
[2018-12-11 03:45] VITALS: BP 116/52
[2018-12-11] MEDS: IPRATRPIUM/ALBUTEROL 0.5/2.5MG 3 ML NEBU. NEB SCH ×6 (04:25→20:07)
[2018-12-11 07:32] VITALS: BP 120/46
[2018-12-11] MEDS: BUDESONIDE 0.5 MG/2 ML NEBU. NEB SCH ×2 (07:35→20:07)
[2018-12-11] MEDS: INSULIN LISPRO 300 UNITS/3 ML INSULN.PEN. SQ SCH ×6 (08:00→17:26)
--- NOTE | 2018-12-11 09:00 | PDOC ---
PULMONARY PROGRESS NOTES Subjective LESS SOA Vitals Vital Signs Date Time Temp Pulse Resp B/P (MAP) Pulse Ox O2 Delivery O2 Flow Rate FiO2 12/11/18 07:37 95 Nasal Cannula 2.0 12/11/18 07:32 98.0 85 20 120/46 (70) 98.0 ROS: No Nausea General: Alert, No acute distress HEENT: Other Lungs: Wheezing, Other Cardiovascular: S1, S2 Abdomen: Soft, Non-tender Neuro Exam: Alert Extremities: No Edema Skin: Warm Labs Laboratory Tests Test 12/09/18 11:39 12/09/18 16:39 12/09/18 20:49 12/10/18 07:10 Glucose (Fingerstick) 396 mg/dL (70-99) 306 mg/dL (70-99) 144 mg/dL (70-99) 169 mg/dL (70-99) Test 12/10/18 11:07 12/10/18 16:36 12/10/18 19:15 12/11/18 07:08 Glucose (Fingerstick) 320 mg/dL (70-99) 218 mg/dL (70-99) 151 mg/dL (70-99) 107 mg/dL (70-99) Laboratory Tests Test 12/10/18 11:07 12/10/18 16:36 12/10/18 19:15 12/11/18 07:08 Glucose (Fingerstick) 320 mg/dL (70-99) 218 mg/dL (70-99) 151 mg/dL (70-99) 107 mg/dL (70-99) Medications Active Scripts Medications Dose Route/Sig Max Daily Dose Days Date Category Ativan (Lorazepam) 1 Mg Tablet 1 Mg PO Q6HRS 12/05/18 Reported Ambien (Zolpidem Tartrate) 10 Mg Tablet 10 Mg PO PRN QHS 12/05/18 Reported Metformin Hcl 500 Mg Tablet 500 Mg PO BIDWMEALS 12/05/18 Reported Klor-Con 10 (Potassium Chloride) 10 Meq Tablet.er 20 Meq PO DAILY08 12/05/18 Reported Actos (Pioglitazone Hcl) 30 Mg Tablet 1 Tab PO DAILY 12/05/18 Reported Simvastatin 20 Mg Tablet 20 Mg PO DAILY 12/05/18 Reported Zoloft (Sertraline Hcl) 100 Mg Tablet 1.5 Tab PO DAILY 1/22/19 Reported Impression . 1. Dyspnea with acute hypoxic respiratory failure secondary to acute exacerbation of chronic obstructive pulmonary disease and acute bronchitis. 2. Cough with brown sputum production related to acute bronchitis. 3. Underlying chronic obstructive pulmonary disease, unknown FEV1. The patient has been smoking for 45 years. 4. No definite pneumonia seen on the chest x-ray. Plan . SLOWLY IMPROVING WILL CONTINUE THE SAME GERD MAY BE CONTRIBUTING TO WHEEZE ANA LAURA DIOR MD Dec 11, 2018 09:00
[2018-12-11] MEDS: LORazepam 1 MG TABLET PO PRN (09:58)
[2018-12-11] MEDS: NICOTINE 21MG PATCH. TD SCH (09:58)
[2018-12-11] MEDS: POTASSIUM CHLORIDE 10 MEQ TABLET.ER. PO SCH (09:59)
[2018-12-11] MEDS: metFORMIN 500 MG TABLET PO SCH ×2 (09:59→17:20)
[2018-12-11] MEDS: SERTRALINE 50 MG TABLET. PO SCH (10:01)
[2018-12-11] MEDS: PIOGLITAZONE 15 MG TABLET. PO SCH (10:01)
[2018-12-11] MEDS: LACTOBACILLUS RHAMNOSUS GG 1 CAPSULE. PO SCH ×2 (10:01→21:00)
[2018-12-11] MEDS: methylPREDNISolone SOD SUCC PF 125 MG/2 ML VIAL. IV SCH ×2 (10:06→21:00)
[2018-12-11] MEDS: IV 1/2 NORMAL SALINE 1,000 ML IV SCH (10:07)
[2018-12-11 11:05] VITALS: BP 118/33
--- NOTE | 2018-12-11 11:08 | NUR ---
ALFREDO following. Pt has been accepted at [facility], phone: , fax: [phone] and facility will have a bed available upon dc. Pt is aware and agreeable that she is not able to smoke at facility. Pt reported she will notify her son about acceptance decision. SW will continue to follow. ADAM DANIEL.
--- NOTE | 2018-12-11 12:07 | PN ---
DATE: 12/11/2018 LOCATION: She is in room 652. SUBJECTIVE: The patient is awake, alert. I observed her trying to get out of the bed, which was very difficult, but she was able to get up to a sitting position on her own this morning. OBJECTIVE: VITAL SIGNS: Vital signs are stable. She is afebrile. O2 is down to 2 liters per nasal cannula. CHEST Reveals expiratory wheezing bilaterally, but again much better air exchange on a day-to-day basis. She remains on IV steroids, IV antibiotics. HEART: Regular. ABDOMEN: Benign. IMPRESSION: 1. Exacerbation of chronic obstructive pulmonary disease with slow, but steady improvement. 2. Acute hypoxic respiratory failure. 3. Coronary artery disease. PLAN: Continue present therapy while she has tapered to p.o. We can consider going to residential for a while as she is quite weak at this point. marketing services rep is investigating residential placement at discharge. MACIEJ SALAZAR MD DR: HUMAIRA/alonzo JOB#: [id number] / [id number]
[2018-12-11 15:26] VITALS: BP 110/34
[2018-12-11 19:05] VITALS: BP 140/50
[2018-12-11] MEDS: SIMVASTATIN 20 MG TABLET PO SCH (21:00)
[2018-12-11] MEDS: AZITHROMYCIN 500 MG in IV NORMAL SALINE 250ML 250 ML IV SCH (21:00)
[2018-12-11] MEDS: ZOLPIDEM 5 MG TABLET. PO SCH (21:00)
[2018-12-11] MEDS: cefTRIAXone IV Push 1 GM VIAL. IVP SCH (21:00)
[2018-12-11] MEDS: INSULIN GLARGINE 300 UNITS/3 ML INSULN.PEN. SQ SCH (21:00)
[2018-12-11 23:05] VITALS: BP 139/58
[2018-12-12] MEDS: IV 1/2 NORMAL SALINE 1,000 ML IV SCH (00:39)
[2018-12-12] MEDS: IPRATRPIUM/ALBUTEROL 0.5/2.5MG 3 ML NEBU. NEB SCH ×3 (00:50→06:59)
[2018-12-12 03:05] VITALS: BP 148/62
[2018-12-12] MEDS: BUDESONIDE 0.5 MG/2 ML NEBU. NEB SCH (06:59)
[2018-12-12 07:05] VITALS: BP 122/47
[2018-12-12] MEDS ORDERED: BUDE0.5A NEB (08:30)
[2018-12-12] MEDS ORDERED: GUAI600T47 PO (08:30)
[2018-12-12] MEDS ORDERED: PRED20TA PO (08:30)
[2018-12-12] MEDS ORDERED: IPRA3AMP29 NEB (08:30)
--- NOTE | 2018-12-12 08:33 | DISCH ---
DISCHARGE DISCHARGE INFORMATION: DISCHARGE DATE: Dec 12, 2018 CONDITION ON DISCHARGE: Stable CODE STATUS: Code Status: Full JAIL: SNF STAY <30 DAYS: Yes HOSPICE: HOSPICE: No HOSPICE EVAL & TREAT: No LTAC: ADMIT TO LTAC: No POST DISCHARGE ORDERS: ACTIVITY ORDERS: Activity as tolerated WEIGHT BEARING STATUS: No restrictions DIET AFTER DISCHARGE: ADA CHECKS AFTER DISCHARGE: CHECKS AFTER DISCHARGE: Check blood press - daily, Check blood sugar, ac/hs TREATMENT/EQUIPMENT ORDERS: RESPIRATORY EQUIPMENT NEEDED: Oxygen Physical Therapy For: Evalulation/Treatment Occupational Therapy For: Evaluation/Treatment DISCHARGE MEDICATIONS: Home Meds Active Scripts Prednisone (PREDNISONE) 20 Mg Tablet, 1 TAB PO BID for copd for 10 Days, #20 TAB Prov:MACIEJ SALAZAR MD 12/12/18 Guaifenesin (MUCINEX) 600 Mg Tablet.er, 600 MG PO BID for cough for 30 Days, # 60 TAB.SR Prov:MACIEJ SALAZAR MD 12/12/18 Budesonide (BUDESONIDE) 0.5 Mg/2 Ml Ampul.neb, 0.5 MG NEB RTBID for copd for 30 Days, #60 EACH Prov:MACIEJ SALAZAR MD 12/12/18 Ipratropium/Albuterol Sulfate (DUONEB 0.5-3(2.5) MG/3 ML) 3 Ml Ampul.neb, 3 ML NEB Q4HRS for sob for 30 Days, #180 EACH Prov:MACIEJ SALAZAR MD 12/12/18 Reported Medications Lorazepam (ATIVAN) 1 Mg Tablet, 1 MG PO Q6HRS for other, TAB 12/05/18 Zolpidem Tartrate (AMBIEN) 10 Mg Tablet, 10 MG PO PRN QHS for other, TAB 0 Refills 12/05/18 Metformin Hcl (METFORMIN HCL) 500 Mg Tablet, 500 MG PO BIDWMEALS for ANTI- DIABETIC, TAB 0 Refills 12/05/18 Potassium Chloride (Klor-Con 10) 10 Meq Tablet.er, 20 MEQ PO DAILY08 for other, TAB.SR 12/05/18 Pioglitazone Hcl (ACTOS) 30 Mg Tablet, 1 TAB PO DAILY for other, #30 TAB 5 Refills 12/05/18 Simvastatin (SIMVASTATIN) 20 Mg Tablet, 20 MG PO DAILY for FOR CHOLESTEROL, #30 TAB 0 Refills 12/05/18 Sertraline Hcl (ZOLOFT) 100 Mg Tablet, 1.5 TAB PO DAILY for other, #30 TAB 5 Refills 12/05/18 MACIEJ SALAZAR MD Dec 12, 2018 08:33
[2018-12-12] MEDS: metFORMIN 500 MG TABLET PO SCH (08:36)
[2018-12-12] MEDS: LACTOBACILLUS RHAMNOSUS GG 1 CAPSULE. PO SCH (08:36)
[2018-12-12] MEDS: PIOGLITAZONE 15 MG TABLET. PO SCH (08:36)
[2018-12-12] MEDS: POTASSIUM CHLORIDE 10 MEQ TABLET.ER. PO SCH (08:37)
[2018-12-12] MEDS: SERTRALINE 50 MG TABLET. PO SCH (08:37)
[2018-12-12] MEDS: methylPREDNISolone SOD SUCC PF 125 MG/2 ML VIAL. IV SCH (08:38)
[2018-12-12] MEDS: NICOTINE 21MG PATCH. TD SCH (08:38)
[2018-12-12] MEDS: INSULIN LISPRO 300 UNITS/3 ML INSULN.PEN. SQ SCH ×2 (08:44→08:45)
--- NOTE | 2018-12-12 08:52 | PDOC ---
PULMONARY PROGRESS NOTES Subjective LESS SOA Vitals Vital Signs Date Time Temp Pulse Resp B/P (MAP) Pulse Ox O2 Delivery O2 Flow Rate FiO2 12/12/18 07:05 98.0 84 20 122/47 (72) 93 Nasal Cannula 2.0 98.0 ROS: No Nausea General: Alert, No acute distress HEENT: Other Lungs: Wheezing, Other Cardiovascular: S1, S2 Abdomen: Soft, Non-tender Neuro Exam: Alert Extremities: No Edema Skin: Warm Labs Laboratory Tests Test 12/10/18 11:07 12/10/18 16:36 12/10/18 19:15 12/11/18 07:08 Glucose (Fingerstick) 320 mg/dL (70-99) 218 mg/dL (70-99) 151 mg/dL (70-99) 107 mg/dL (70-99) Test 12/11/18 11:32 12/11/18 16:58 12/11/18 21:34 Glucose (Fingerstick) 208 mg/dL (70-99) 286 mg/dL (70-99) 256 mg/dL (70-99) Laboratory Tests Test 12/11/18 11:32 12/11/18 16:58 12/11/18 21:34 Glucose (Fingerstick) 208 mg/dL (70-99) 286 mg/dL (70-99) 256 mg/dL (70-99) Medications Active Scripts Medications Dose Route/Sig Max Daily Dose Days Date Category Ativan (Lorazepam) 1 Mg Tablet 1 Mg PO Q6HRS 12/05/18 Reported Ambien (Zolpidem Tartrate) 10 Mg Tablet 10 Mg PO PRN QHS 12/05/18 Reported Metformin Hcl 500 Mg Tablet 500 Mg PO BIDWMEALS 12/05/18 Reported Klor-Con 10 (Potassium Chloride) 10 Meq Tablet.er 20 Meq PO DAILY08 12/05/18 Reported Actos (Pioglitazone Hcl) 30 Mg Tablet 1 Tab PO DAILY 12/05/18 Reported Simvastatin 20 Mg Tablet 20 Mg PO DAILY 12/05/18 Reported Zoloft (Sertraline Hcl) 100 Mg Tablet 1.5 Tab PO DAILY 12/05/18 Reported Impression . 1. Dyspnea with acute hypoxic respiratory failure secondary to acute exacerbation of chronic obstructive pulmonary disease and acute bronchitis. 2. Cough with brown sputum production related to acute bronchitis. 3. Underlying chronic obstructive pulmonary disease, unknown FEV1. The patient has been smoking for 45 years. 4. No definite pneumonia seen on the chest x-ray. Plan . SLOWLY IMPROVING WILL CONTINUE THE SAME GERD MAY BE CONTRIBUTING TO WHEEZE ANA LAURA DIOR MD Dec 12, 2018 08:52
--- NOTE | 2018-12-12 09:20 | NUR ---
ALFREDO following. ALFREDO phoned and faxed orders to [facility]. Pt's choice and rights forms verbally consented by pt and copies placed on chart. Pt's son notified of plan and agreeable. Packet on chart. 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 ADAM DANIEL.
--- NOTE | 2018-12-12 10:51 | DS ---
DATE OF DISCHARGE: 12/12/2018 PRIMARY DIAGNOSIS: Exacerbation of chronic obstructive pulmonary disease. ADDITIONAL DIAGNOSES: Acute hypoxic respiratory failure, diabetes, remote history of carcinoma of the colon, atherosclerotic heart disease, hyperlipidemia. CHIEF COMPLAINT AND HISTORY OF PRESENT ILLNESS: This 68-year-old white female is well known to me in followup in the office. She was seen on the day of admission in the office, brought by her brother. She had had coughing, increasing shortness of breath over a week to 10 days prior to admission. It got to the point where she was unable to walk around the house, do activities of daily living. She was seen in the office with markedly decreased air movement, bilateral wheezes, hypoxia with an O2 sat of 84%, a resting pulse of 118, was admitted for exacerbation of COPD with possible pneumonia. SUMMARY OF STAY: The patient was admitted, treated throughout the stay for exacerbation of COPD with IV steroids, IV fluids, IV antibiotics, pulmonary toilet. Chest x-ray showed no acute changes. Pulmonary followed along throughout the stay. Medications were adjusted. She did improve slowly, but surely but still quite weak, even having difficulties getting out of the bed by herself by the time of discharge. It was recommended she go to SNU. The patient lives in [place] that she chose as correction in [place] at the time of discharge to be closer to her son, which is understandable. She was felt ready for dismissal and this was accomplished. DISPOSITION: The patient is discharged to a correction, ADA diet, activity as tolerated. PT and OT to follow. DISCHARGE MEDICATIONS: Listed on the med rec. ADDENDUM: The patient did have some hyperglycemia during the stay with the use of the steroids, but this was markedly improving by the time of discharge from the hospital. MACIEJ SALAZAR MD DR: HUMAIRA/alonzo JOB#: [id number] / [id number]
--- NOTE | 2018-12-12 11:04 | NUR ---
Discharge Note: MIRANDA PALENCIA [address] [place] [address] Discharge instructions and discharge home medications reviewed with Other facility and a copy given. All questions have been answered and understanding verbalized. The following instructions and handouts were given: Diet, activity, medication list and follow up instructions provided to [facility]. Report called to Lashanda DANIEL. Discontinued lines and drains: Peripheral IV discontinued and catheter intact. Patient discharged to Care Home Facility with Self via Wheelchair
== END 2018-12-12 10:49 | DRG 189 ==
LOC: 6 SOUTH 14:51
PROVIDERS: ADMIT Family Medicine; ATTEND Family Medicine
DX: J96.01 Acute respiratory failure with hypoxia (principal); J44.1 Chronic obstructive pulmonary disease with (acute) exacerbation; J44.0 Chronic obstructive pulmonary disease with (acute) lower respiratory infection; E11.65 Type 2 diabetes mellitus with hyperglycemia; E78.5 Hyperlipidemia, unspecified; F17.200 Nicotine dependence, unspecified, uncomplicated; I25.10 Atherosclerotic heart disease of native coronary artery without angina pectoris; I25.2 Old myocardial infarction; J20.9 Acute bronchitis, unspecified; T38.0X5A Adverse effect of glucocorticoids and synthetic analogues, initial encounter; Z85.038 Personal history of other malignant neoplasm of large intestine; Y92.89 Other specified places as the place of occurrence of the external cause
CPT/HCPCS: 36415; 71045; 80053; 81001; 82962; 85025; 90471; 90756; 94640; 94760; 99406; J0456; J0696; J1815; J2920; J2930; J7050; J7620; J7626; 97110; 97116; 97530; 97535; G0378; J7030; Q2035